=== PATIENT | male | born 1925 | race Caucasian/White ===

== ENCOUNTER 2016-06-03 09:35 | Day surgery (SDC) | payer MEDICARE ==
[~2016-06-03 09:35] MED LIST: Acetaminophen TAB* 325 MG PO PRN; Buffered Lidocaine 1% SYR 3ML* 3 ML/SYR SYRINGE INTRADERM ONE
[2016-06-03] MEDS ORDERED: fentaNYL* 50 MCG/ML 2 ML VIAL (100 MCG VIAL) ONE (10:50)
[2016-06-03] MEDS ORDERED: Midazolam* 1 MG/ML 2 ML VIAL (2 MG) ONE (10:50)
[2016-06-03 13:36] VITALS: BP 159/57
--- NOTE | 2016-06-04 03:25 | OP ---
DATE OF OPERATION: 06/03/16 - [facility] DATE OF : 09/27/26 SURGEON: Felice Harding MD ANESTHESIOLOGIST: Bradford Akers MD ANESTHESIA: Monitored anesthesia care. PRE-OP DIAGNOSIS: Cataract of the right eye. POST-OP DIAGNOSIS: Cataract of the right eye. OPERATIVE PROCEDURE: Cataract surgery of the right eye. IMPLANTS: SN6AT6 13.0 diopter lens to the right eye at 4 degrees. COMPLICATIONS: None. DESCRIPTION OF PROCEDURE: The patient was given phenylephrine 2.5% and cyclopentolate 1% eye drops to the operative eye in the preoperative area. The patient was brought to the operating room where a time-out was taken to identify the correct patient, site and side of surgery. The patient's right eye was prepped and draped in the usual sterile fashion with 5% Betadine. A second time-out was taken to verify the correct patient, site and side of surgery, and correct lens selection. A lid speculum was placed to the right eye. The preoperative measurement of an axis of 4 degrees on the cornea was confirmed with a Rios degree marker and re-highlighted on the cornea. A 1-mm paracentesis blade was used to make a clear corneal incision in the superotemporal position. Preservative-free 1% lidocaine was injected into the anterior chamber. DuoVisc was then injected into the anterior chamber. A 2.75- mm keratome blade was used to make a triplanar incision at the inferotemporal position. A cystotome was used to initiate a capsulorrhexis, which was completed with Utrata forceps in a continuous and curvilinear manner. Hydrodissection of the lens was then performed with BSS on a cannula. The lens could be spun in the capsular bag. The phacoemulsification handpiece was then used with a divide and conquer technique to remove the nucleus in its entirety with 14.92 CDE. The I/A handpiece was then used to remove the residual cortical lens material. DuoVisc was then injected to inflate the capsular bag. The planned SN6AT6 13 diopter lens was then inserted in the capsular bag and positioned to 4 degrees. The residual DuoVisc was then removed from the eye with I/A handpiece and again the orientation of the lens was confirmed. The corneal incisions were then hydrated and no leaks occurred at physiologic pressure around 20 mmHg per palpation. The lid speculum was then removed and drapes removed. Maxitrol ointment was then placed to the surface of the operative eye. An adhesive patch and shield were then placed on the operative eye. The patient was taken to the postoperative area in stable condition. [id number]/[facility] #: [id number] MTDD
== END 2016-06-03 13:43 | disposition home or self-care (01) ==
LOC: OREAST 09:35
PROVIDERS: ATTEND Student in an Organized Health Care Education/Training Program
DX: H25.11 Age-related nuclear cataract, right eye (principal); H40.122 Low-tension glaucoma, left eye; H40.1211 Low-tension glaucoma, right eye, mild stage; I25.10 Atherosclerotic heart disease of native coronary artery without angina pectoris; I10 Essential (primary) hypertension; Z87.891 Personal history of nicotine dependence; Z95.1 Presence of aortocoronary bypass graft
CPT/HCPCS: J2250; J3010; V2787

== ENCOUNTER 2016-06-10 11:30 | Day surgery (SDC) | payer MEDICARE ==
[~2016-06-10 11:30] MED LIST changes: +Cyclopentolate 1% OPTH.SOL* 2 ML BTL ONE; +Flurbiprofen 0.03% OPTH.SOL* 2.5 ML BTL ONE; +Lidocaine 1% MPF* 2 ML VIAL ONE; +Neomycin/Polymy/Dex OPHTH.OIN* 3.5 GM ONE; +Phenylephrine 2.5% OPTH.SOL* 2 ML BTL ONE; +Povidone Iodine 5% OPTH* 30 ML BTL ONE; +Tetracaine 0.5% OPTH.SOL 4 ML* 1 DROP BTL ONE; +acetaZOLAMIDE TAB* 250 MG ONE
[2016-06-10] MEDS ORDERED: fentaNYL* 50 MCG/ML 2 ML VIAL (100 MCG VIAL) ONE (13:16)
[2016-06-10] MEDS ORDERED: Midazolam* 1 MG/ML 2 ML VIAL (2 MG) ONE (13:17)
[2016-06-10 15:02] VITALS: BP 151/63
--- NOTE | 2016-06-11 05:05 | OP ---
DATE OF OPERATION: 06/10/16 - [facility] DATE OF : 09/27/26 SURGEON: Felice Harding MD. ANESTHESIOLOGIST: Moris Armstrong MD ANESTHESIA: Monitored anesthesia care. PRE-OP DIAGNOSIS: Cataract of the left eye. POST-OP DIAGNOSIS: Cataract of the left eye. PROCEDURE PERFORMED: Cataract extraction of the left eye. IMPLANTS: SN6AT6 11 diopter to the left eye. COMPLICATIONS: None. OPERATIVE REPORT: The patient was given phenylephrine 2.5% and cyclopentolate 1 % eye drops in the operative eye in the preoperative area. Preoperative torque markers were made under the cornea at 4 degrees. The patient was brought to the operative room where a time-out was taken to identify the correct patient, site and side of the surgery. The patient's left eye was prepped and draped in the usual sterile fashion with 5% Betadine. A second time-out was taken to verify the correct patient, site and side of the surgery and correct lens selection. A lid speculum was placed to the left eye. The preoperative measurement of an axis of 4 degrees on the cornea was confirmed with a Rios Degree Marker and highlighted on the cornea. A 1 mm paracentesis blade was used to make a clear corneal incision in the infero-temporal position. Preservative-free 1% lidocaine was injected into the anterior chamber. DuoVisc was then injected into the anterior chamber. A 2.75 mm keratome blade was used to make a triplanar incision at the superotemporal position. A cystotome was used to initiate a capsulorrhexis, which was completed with Utrata forceps in a continuous and curvilinear manner. Hydrodissection of the lens was then performed with BSS on a cannula. The lens could be spun in a capsular bag. The phacoemulsification handpiece was then used with a divide and conquer technique to remove the nucleus in its entirety with a 32.68 CDE. The I/A handpiece then used to remove the residual cortical lens material. DuoVisc was then injected to inflate the capsular bag. The planned SN6AT6 11 diopter lens was then inserted into the capsular bag and positioned to 4 degrees. The residual DuoVisc was then removed from the eye with the I/A handpiece and again the orientation of the lens was confirmed. The corneal incisions were then hydrated and no leaks occurred at physiologic pressure around 20 mmHg per palpation. The lid speculum was then removed and drapes removed. Maxitrol ointment was then placed to the surface of the operative eye. An adhesive patch and shield were then placed on the operative eye. The patient was taken to the postoperative area in stable condition. [id number]/[facility] #: [id number] MTDD
== END 2016-06-10 14:43 | disposition home or self-care (01) ==
LOC: OREAST 11:30
PROVIDERS: ATTEND Student in an Organized Health Care Education/Training Program
DX: H25.12 Age-related nuclear cataract, left eye (principal); H40.122 Low-tension glaucoma, left eye; H40.1211 Low-tension glaucoma, right eye, mild stage; Z95.1 Presence of aortocoronary bypass graft; I10 Essential (primary) hypertension
CPT/HCPCS: A9270-GY; J2250; J3010; V2787